=== PATIENT | female | born 1960 | race Caucasian/White ===

== ENCOUNTER 2024-04-29 04:01 | Inpatient (IN) | payer MEDICARE, OTHER ==
[~2024-04-29] VITALS: Ht 175.3 cm; Wt 35.4 kg
[2024-04-29] MEDS: FAMOTIDINE/PF INJ 20 MG/2 ML VIAL IV ONE (04:48)
[2024-04-29] MEDS: ONDANSETRON HCL/PF 4 MG/2 ML VIAL IVP ONE (04:48)
[2024-04-29] MEDS: IV NS 0.9% 1,000 ML BAG IV ONE (04:48)
[2024-04-29 05:24] LABS: CALCIUM, SERUM 10.1 mg/dL (8.5-10.1); CARBON DIOXIDE 32 mmol/L (21-32); CREATININE 3.8 mg/dL (0.6-1.3); GLUCOSE 165 mg/dL (74-106); SODIUM SERUM 126 mmol/L (136-145); UREA NITROGEN, BLOOD 76 mg/dL (7-18)
[2024-04-29 05:29] LABS: BASOPHILS # (AUTO) 0.1 K/uL (0.0-0.2); BASOPHILS % (AUTO) 0.3 % (0.0-2.0); HEMATOCRIT 43 % (33-45); HEMOGLOBIN 15.7 g/dL (11.5-14.8); LYMPHOCYTES # (AUTO) 0.3 K/uL (0.8-4.8); LYMPHOCYTES % (AUTO) 1.3 % (20.0-44.0); MEAN CORPUSCULAR HEMOGLOBIN 35 PG (26.0-33.0); MEAN CORPUSCULAR HGB CONC 37 g/dl (31.0-36.0); MEAN CORPUSCULAR VOLUME 96 fL (82-100); MONOCYTES # (AUTO) 1.4 K/uL (0.1-1.30); MONOCYTES % (AUTO) 5.7 % (2.0-12.0); NEUTROPHILS # (AUTO) 23.6 K/uL (1.8-8.9); NEUTROPHILS % (AUTO) 92.7 % (43.0-81.0); PLATELET COUNT (AUTO) 215 K/uL (150-450); RED BLOOD CELL COUNT(AUTO) 4.47 MIL/uL (4.0-5.2); RED CELL DISTRIBUTION WIDTH 12.1 % (11.5-15.0); WHITE BLOOD COUNT (AUTO) 25.4 K/uL (4.3-11.0)
[2024-04-29 05:30] LABS: ALANINE AMINOTRANSFERASE 17 U/L (12-78); ALKALINE PHOSPHATASE 74 U/L (46-116); ASPARTATE AMINOTRANSFERASE 21 U/L (15-37); BILIRUBIN,DIRECT 0.7 mg/dL (0.0-0.2); BILIRUBIN,TOTAL 1.8 mg/dL (0.2-1.0); LIPASE 27 U/L (16-77); TOTAL PROTEIN, SERUM 8.5 g/dL (6.4-8.2)
[2024-04-29 05:40] LABS: CHLORIDE 77 mmol/L (98-107)
[2024-04-29] MEDS ORDERED: METOCLOPRAMIDE HCL 10 MG/2 ML VIAL ONE (05:52)
[2024-04-29] MEDS ORDERED: LIDOCAINE VISCOUS 2% UD 15 ML UDC ONE (05:52)
[2024-04-29] MEDS: POTASSIUM CL. PREMIX PERIPHER. 50 ML IV SCH (06:00)
[2024-04-29] MEDS: diphenhydrAMINE HCL 50 MG/ML VIAL IV ONE (06:00)
[2024-04-29] MEDS ORDERED: Z GUARD REMEDY 4 OZ OINT TP PRN (06:30)
[2024-04-29] MEDS: METOCLOPRAMIDE HCL 10 MG/2 ML VIAL IV ONE (06:44)
[2024-04-29] MEDS: PIPERACILLIN /TAZOBACTAM 3.375 G in IV D5W 50 ML IV ONE (06:48)
[2024-04-29] MEDS ORDERED: POTASSIUM CL. PREMIX PERIPHER. 50 ML IV SCH (07:00)
[2024-04-29 07:03] LABS: INR 1.1 (0.91-1.10); PROTHROMBIN TIME 11.6 SECS (9.2-11.1)
[2024-04-29] MEDS ORDERED: POTASSIUM CL. PREMIX PERIPHER. 50 ML ONE (07:09)
[2024-04-29 08:00] VITALS: BP 127/74; TEMP 98.3; O2SAT 95
[2024-04-29 08:16] LABS: MAGNESIUM 2.2 mg/dL (1.8-2.4); PHOSPHORUS 7.3 mg/dL (2.5-4.9)
[2024-04-29 08:35] LABS: LACTIC ACID 4.5 mmol/L (0.4-2.0)
[2024-04-29] MEDS: PANTOPRAZOLE 40 MG VIAL IV SCH (09:00)
[2024-04-29] MEDS ORDERED: IV D5/0.45 NACL 1,000 ML IV ONE (09:00)
[2024-04-29] MEDS: IV NS 0.9% 1,000 ML IV ONE (10:58)
[2024-04-29] MEDS ORDERED: PIPERACILLIN /TAZOBACTAM 3.375 G in IV D5W 50 ML IV SCH (13:00)
[2024-04-29] MEDS: PIPERACILLIN /TAZOBACTAM 2.25 G in IV D5W 50 ML IV SCH (13:48)
[2024-04-29 14:41] LABS: CALCIUM, SERUM 8.7 mg/dL (8.5-10.1); POTASSIUM 3.1 mmol/L (3.5-5.1)
[2024-04-29 16:00] VITALS: BP 120/70; TEMP 98.2; O2SAT 94
[2024-04-29 16:20] LABS: ANISOCYTOSIS 1+; LYMPHOCYTES % (MANUAL) 2 % (16-48); MONOCYTES % (MANUAL) 4 % (0-11.0); NEUTROPHILS % (MANUAL) 94 (42-76); PLATELET ESTIMATE ADEQUATE
[2024-04-29 19:35] LABS: APPEARANCE,URINE SLIGHTLY CLOUDY (CLEAR); BILIRUBIN,URINE 1+ (NEGATIVE); BLOOD, URINE NEGATIVE Ery/uL (NEGATIVE); COLOR,URINE YELLOW (YELLOW); KETONES,URINE TRACE mg/dL (NEGATIVE); LEUKOCYTE ESTERASE ,URINE NEGATIVE (NEGATIVE); NITRITE, URINE NEGATIVE (NEGATIVE); PROTEIN,URINE TRACE mg/dl (NEGATIVE); UGLUCOSE NEGATIVE (NEGATIVE); UROBILINOGEN,URINE 0.2 EU/dL (0.2)
[2024-04-29 19:40] LABS: ADD URINE CULTURE NO; BACTERIA,URINE Rare /HPF (None Seen); RBC,URINE NONE SEEN /HPF (0-2); SQUAMOUS EPITHELIAL CELL,UR Rare /HPF (None Seen); URIC ACID CRYSTALS,URINE Many /HPF (None Seen); WBC,URINE NONE SEEN /HPF (0-3)
[2024-04-29 19:54] LABS: EOSINOPHIL,URINE None Seen
[2024-04-29 20:00] VITALS: BP 124/68; TEMP 98.2; O2SAT 97
[2024-04-29 20:09] LABS: CREATININE, URINE 83.6 MG/DL (30.0-125.0); URINE SODIUM, RANDOM < 5 mmol/l (40-220)
[2024-04-30] MEDS: IV NS 0.9% 1,000 ML BAG IV PRN (00:35)
[2024-04-30 04:00] VITALS: BP 125/59; TEMP 97.6; O2SAT 95
[2024-04-30 07:05] LABS: EOSINOPHILS % (AUTO) 0.1 % (0.0-6.0); HEMATOCRIT 35 % (33-45); HEMOGLOBIN 12.3 g/dL (11.5-14.8); LYMPHOCYTES # (AUTO) 0.4 K/uL (0.8-4.8); LYMPHOCYTES % (AUTO) 2.6 % (20.0-44.0); MEAN CORPUSCULAR HEMOGLOBIN 35 PG (26.0-33.0); MEAN CORPUSCULAR HGB CONC 36 g/dl (31.0-36.0); MEAN CORPUSCULAR VOLUME 98 fL (82-100); MONOCYTES # (AUTO) 0.7 K/uL (0.1-1.30); MONOCYTES % (AUTO) 4.5 % (2.0-12.0); NEUTROPHILS # (AUTO) 13.5 K/uL (1.8-8.9); NEUTROPHILS % (AUTO) 92.8 % (43.0-81.0); PLATELET COUNT (AUTO) 184 K/uL (150-450); RED BLOOD CELL COUNT(AUTO) 3.52 MIL/uL (4.0-5.2); WHITE BLOOD COUNT (AUTO) 14.6 K/uL (4.3-11.0)
[2024-04-30 07:11] LABS: ALBUMIN 2.7 g/dL (3.4-5.0); BILIRUBIN,DIRECT 0.5 mg/dL (0.0-0.2); CALCIUM, SERUM 8.5 mg/dL (8.5-10.1); MAGNESIUM 2.2 mg/dL (1.8-2.4); PHOSPHORUS 2.6 mg/dL (2.5-4.9); TOTAL PROTEIN, SERUM 6.4 g/dL (6.4-8.2)
[2024-04-30 07:19] LABS: THYROID STIMULATING HORMONE 0.58 uIU/mL (0.358-3.74)
[2024-04-30 07:46] LABS: POTASSIUM 2.3 mmol/L (3.5-5.1)
[2024-04-30 08:00] VITALS: BP 129/64; TEMP 97.7; O2SAT 95
[2024-04-30] MEDS: POTASSIUM CL. PREMIX PERIPHER. 50 ML IV SCH (10:16)
[2024-04-30 12:00] VITALS: BP 119/64; TEMP 99; O2SAT 96
[2024-04-30] MEDS: LORAZEPAM INJ 2 MG/ML VIAL IV PRN ×2 (12:06→19:46)
[2024-04-30 16:00] VITALS: BP 127/66; TEMP 97.7; O2SAT 95
[2024-04-30] MEDS ORDERED: DIATR MEGLU/DIATRIZOATE SODIUM 120 ML BOTTLE (GASTROGRAPHIN) ONE (16:44)
[2024-04-30] MEDS: ONDANSETRON HCL/PF 4 MG/2 ML VIAL IVP PRN (17:04)
[2024-04-30 20:00] VITALS: BP 139/70; TEMP 98.3; O2SAT 96
[2024-05-01] VITALS (16 sets, daily range): BP systolic 95–157; BP diastolic 63–89; TEMP 97.6–98.1; O2SAT 97–100
[2024-05-01 06:25] LABS: HEMATOCRIT 40 % (33-45); HEMOGLOBIN 13.8 g/dL (11.5-14.8); LYMPHOCYTES # (AUTO) 0.2 K/uL (0.8-4.8); LYMPHOCYTES % (AUTO) 1.1 % (20.0-44.0); MEAN CORPUSCULAR HEMOGLOBIN 34 PG (26.0-33.0); MEAN CORPUSCULAR HGB CONC 34 g/dl (31.0-36.0); MEAN CORPUSCULAR VOLUME 100 fL (82-100); MONOCYTES # (AUTO) 0.5 K/uL (0.1-1.30); MONOCYTES % (AUTO) 3.1 % (2.0-12.0); NEUTROPHILS # (AUTO) 16.5 K/uL (1.8-8.9); NEUTROPHILS % (AUTO) 95.8 % (43.0-81.0); PLATELET COUNT (AUTO) 237 K/uL (150-450); RED BLOOD CELL COUNT(AUTO) 4.02 MIL/uL (4.0-5.2); RED CELL DISTRIBUTION WIDTH 11.9 % (11.5-15.0); WHITE BLOOD COUNT (AUTO) 17.2 K/uL (4.3-11.0)
[2024-05-01 07:25] LABS: CALCIUM, SERUM 9.9 mg/dL (8.5-10.1); CREATININE 1.4 mg/dL (0.6-1.3); MAGNESIUM 2.5 mg/dL (1.8-2.4); PHOSPHORUS 1.4 mg/dL (2.5-4.9); POTASSIUM 2.9 mmol/L (3.5-5.1)
[2024-05-01 07:52] LABS: ALBUMIN 3.3 g/dL (3.4-5.0); BILIRUBIN,DIRECT 0.3 mg/dL (0.0-0.2); BILIRUBIN,TOTAL 0.8 mg/dL (0.2-1.0); TOTAL PROTEIN, SERUM 7.8 g/dL (6.4-8.2)
[2024-05-01] MEDS ORDERED: IV NS 0.9% 1,000 ML IV PRN (10:30)
[2024-05-01] MEDS: Potassium Chloride 20 MEQ in IV D5W 100 ML IV SCH (10:54)
[2024-05-01 11:10] LABS: PTH, INTACT 43 pg/mL (15-65)
[2024-05-01] MEDS ORDERED: ANESTHESIA TRAY IN PYXIS 1 EA TRAY MC ONE (13:02)
[2024-05-01] MEDS ORDERED: BUPIVACAINE 0.5 % PF 150 MG/30 ML VIAL ONE (13:02)
[2024-05-01] MEDS ORDERED: LIDOCAINE 1%-EPI 1:100,000 20 ML VIAL ONE (13:02)
[2024-05-01] MEDS ORDERED: FENTANYL PF 250MCG/5ML AMPUL ONE (15:06)
[2024-05-01] MEDS ORDERED: ROCURONIUM BROMIDE 50 MG/5 ML ONE (15:06)
[2024-05-01] MEDS ORDERED: ALBUMIN 5% 250 ML IV ONE (16:29)
[2024-05-01] MEDS: POTASSIUM PHOSPHATE MM 7.5 MMOL in IV NS 0.9% 100 ML IV SCH (17:00)
[2024-05-01] MEDS ORDERED: FENTANYL PF 100MCG/2ML AMPUL ONE (17:05)
[2024-05-01] MEDS ORDERED: METRONIDAZOLE 500MG/ NS 100ML 100 ML IV ONE (17:07)
[2024-05-01] MEDS ORDERED: EPINEPHRINE (1:10,000) SYRINGE 1 MG/10 ML DISP.SYRIN ONE (17:19)
[2024-05-01] MEDS: IV D5/0.45 NACL 1,000 ML IV PRN (18:41)
[2024-05-01] MEDS: HYDROMORPHONE 1 MG/1 ML DISP.SYRIN IV PRN (19:52)
[2024-05-01 20:14] LABS: POTASSIUM 2.6 mmol/L (3.5-5.1)
[2024-05-01 21:55] LABS: ABG BASE EXCESS -8.7 mmol/L (-2.0-3.0); ABG OXYGEN SATURATION 99.2 % (94.0-98.0); ABG PCO2 23.1 mmHg (32.0-45.0); ABG PH 7.394 (7.350-7.450); ABG PO2 246.3 mmHg (83.0-108.0); ABG TOTAL HEMOGLOBIN 15.6 G/dL (12.0-16.0); COHb 0.3 % (0.5-1.5); MetHb 0.6 % (0.0-1.5); O2Hb 98.3 % (94.0-97.0); PEEP,BG 5 cm H2O; SITE, ABG RIGHT BRACHIAL
[2024-05-01] MEDS ORDERED: POTASSIUM CL. PREMIX PERIPHER. 50 ML IV SCH (22:00)
[2024-05-01] MEDS: PROPOFOL 100 ML IV PRN (22:19)
[2024-05-01] MEDS: SODIUM BICARBONATE SYR 50 MEQ/50 ML DISP.SYRIN IV ONE (22:38)
[2024-05-01 22:52] LABS: ABG BASE EXCESS -12.7 mmol/L (-2.0-3.0); ABG OXYGEN SATURATION 98.9 % (94.0-98.0); ABG PCO2 22.7 mmHg (32.0-45.0); ABG PH 7.309 (7.350-7.450); ABG TOTAL HEMOGLOBIN 16.1 G/dL (12.0-16.0); COHb 0.3 % (0.5-1.5); MetHb 0.4 % (0.0-1.5); O2Hb 98.2 % (94.0-97.0); PEEP,BG 5 cm H2O; SITE, ABG ALINE
[2024-05-02] VITALS (99 sets, daily range): BP systolic 75–140; BP diastolic 33–93; TEMP 97.7–98; O2SAT 96–100
[2024-05-02] MEDS: PHENYLEPHRINE 50 MG in IV NS 0.9% 245 ML IV PRN (01:25)
[2024-05-02] MEDS: PHENYLEPHRINE 10 MG/ML VIAL ONE (01:33)
[2024-05-02 04:10] LABS: BASOPHILS % (AUTO) 0.1 % (0.0-2.0); EOSINOPHILS % (AUTO) 0.1 % (0.0-6.0); HEMATOCRIT 39 % (33-45); HEMOGLOBIN 13.5 g/dL (11.5-14.8); LYMPHOCYTES # (AUTO) 0.2 K/uL (0.8-4.8); LYMPHOCYTES % (AUTO) 1.3 % (20.0-44.0); MEAN CORPUSCULAR HEMOGLOBIN 35 PG (26.0-33.0); MEAN CORPUSCULAR HGB CONC 35 g/dl (31.0-36.0); MEAN CORPUSCULAR VOLUME 102 fL (82-100); MONOCYTES # (AUTO) 0.9 K/uL (0.1-1.30); MONOCYTES % (AUTO) 5.1 % (2.0-12.0); NEUTROPHILS # (AUTO) 15.8 K/uL (1.8-8.9); NEUTROPHILS % (AUTO) 93.4 % (43.0-81.0); PLATELET COUNT (AUTO) 258 K/uL (150-450); RED BLOOD CELL COUNT(AUTO) 3.82 MIL/uL (4.0-5.2); RED CELL DISTRIBUTION WIDTH 12.4 % (11.5-15.0)
[2024-05-02 04:54] LABS: ALBUMIN 2.1 g/dL (3.4-5.0); BILIRUBIN,DIRECT 0.1 mg/dL (0.0-0.2); BILIRUBIN,TOTAL 0.9 mg/dL (0.2-1.0); CALCIUM, SERUM 7.3 mg/dL (8.5-10.1); CREATININE 1.8 mg/dL (0.6-1.3); POTASSIUM 3.6 mmol/L (3.5-5.1); TOTAL PROTEIN, SERUM 5.2 g/dL (6.4-8.2)
[2024-05-02] MEDS: IV D5W 1,000 ML IV ONE (10:06)
[2024-05-03] VITALS (52 sets, daily range): BP systolic 107–151; BP diastolic 51–95; TEMP 98–99.2; O2SAT 98–100
[2024-05-03 05:30] LABS: BASOPHILS % (AUTO) 0.1 % (0.0-2.0); EOSINOPHILS % (AUTO) 0.1 % (0.0-6.0); HEMATOCRIT 29 % (33-45); HEMOGLOBIN 10.4 g/dL (11.5-14.8); LYMPHOCYTES % (AUTO) 5.2 % (20.0-44.0); MEAN CORPUSCULAR HEMOGLOBIN 36 PG (26.0-33.0); MEAN CORPUSCULAR HGB CONC 36 g/dl (31.0-36.0); MEAN CORPUSCULAR VOLUME 100 fL (82-100); MONOCYTES # (AUTO) 1.2 K/uL (0.1-1.30); MONOCYTES % (AUTO) 6.4 % (2.0-12.0); NEUTROPHILS # (AUTO) 16.7 K/uL (1.8-8.9); NEUTROPHILS % (AUTO) 88.2 % (43.0-81.0); PLATELET COUNT (AUTO) 162 K/uL (150-450); RED BLOOD CELL COUNT(AUTO) 2.92 MIL/uL (4.0-5.2); RED CELL DISTRIBUTION WIDTH 12.3 % (11.5-15.0); WHITE BLOOD COUNT (AUTO) 18.9 K/uL (4.3-11.0)
[2024-05-03 05:47] LABS: ALBUMIN 1.7 g/dL (3.4-5.0); BILIRUBIN,DIRECT 0.2 mg/dL (0.0-0.2); BILIRUBIN,TOTAL 0.4 mg/dL (0.2-1.0); CALCIUM, SERUM 7.2 mg/dL (8.5-10.1); CREATININE 1.6 mg/dL (0.6-1.3); MAGNESIUM 1.4 mg/dL (1.8-2.4); PHOSPHORUS 1.4 mg/dL (2.5-4.9); TOTAL PROTEIN, SERUM 4.7 g/dL (6.4-8.2)
[2024-05-03 05:50] LABS: POTASSIUM 2.4 mmol/L (3.5-5.1)
[2024-05-03] MEDS: POTASSIUM CL. PREMIX PERIPHER. 50 ML IV SCH (06:32)
[2024-05-03] MEDS ORDERED: POTASSIUM CL. PREMIX PERIPHER. 50 ML IV SCH (09:30)
[2024-05-03] MEDS ORDERED: Magnesium 1 GM/2 ML VIAL IV ONE (10:00)
[2024-05-03] MEDS: MEROPENEM 500 MG in IV NS 0.9% 50 ML IV SCH (10:27)
[2024-05-03] MEDS: POTASSIUM PHOSPHATE MM 7.5 MMOL in IV NS 0.9% 100 ML IV SCH ×2 (10:27→19:30)
[2024-05-03] MEDS: VANCOMYCIN 750 MG in IV D5W 250 ML IV ONE (11:24)
[2024-05-03] MEDS: Magnesium 1GM/D5W 100ML PREMIX PIGGYBACK IV SCH (12:26)
[2024-05-03] MEDS ORDERED: MEROPENEM 1 G in IV NS 0.9% 100 ML IV SCH (13:00)
[2024-05-03 15:27] LABS: ABG BASE EXCESS -4.4 mmol/L (-2.0-3.0); ABG OXYGEN SATURATION 98.1 % (94.0-98.0); ABG PCO2 24.5 mmHg (32.0-45.0); ABG PH 7.479 (7.350-7.450); ABG PO2 119.9 mmHg (83.0-108.0); ABG TOTAL HEMOGLOBIN 10.9 G/dL (12.0-16.0); COHb 0.2 % (0.5-1.5); MetHb 0.1 % (0.0-1.5); O2Hb 97.8 % (94.0-97.0); SITE, ABG RIGHT BRACHIAL
[2024-05-03 17:52] LABS: CALCIUM, SERUM 7.2 mg/dL (8.5-10.1); CREATININE 1.1 mg/dL (0.6-1.3); MAGNESIUM 2.1 mg/dL (1.8-2.4); PHOSPHORUS 1.8 mg/dL (2.5-4.9); POTASSIUM 3.3 mmol/L (3.5-5.1)
[2024-05-04] VITALS (26 sets, daily range): BP systolic 129–157; BP diastolic 65–87; TEMP 96.5–98.4; O2SAT 99–100
[2024-05-04 05:29] LABS: EOSINOPHILS % (AUTO) 0.2 % (0.0-6.0); HEMATOCRIT 28 % (33-45); HEMOGLOBIN 10.1 g/dL (11.5-14.8); LYMPHOCYTES # (AUTO) 0.8 K/uL (0.8-4.8); LYMPHOCYTES % (AUTO) 4.9 % (20.0-44.0); MEAN CORPUSCULAR HEMOGLOBIN 36 PG (26.0-33.0); MEAN CORPUSCULAR HGB CONC 36 g/dl (31.0-36.0); MEAN CORPUSCULAR VOLUME 99 fL (82-100); MONOCYTES # (AUTO) 0.9 K/uL (0.1-1.30); MONOCYTES % (AUTO) 5.6 % (2.0-12.0); NEUTROPHILS # (AUTO) 15.2 K/uL (1.8-8.9); NEUTROPHILS % (AUTO) 89.3 % (43.0-81.0); PLATELET COUNT (AUTO) 156 K/uL (150-450); RED BLOOD CELL COUNT(AUTO) 2.85 MIL/uL (4.0-5.2); RED CELL DISTRIBUTION WIDTH 12.3 % (11.5-15.0)
[2024-05-04 05:42] LABS: CALCIUM, SERUM 7.3 mg/dL (8.5-10.1); MAGNESIUM 1.6 mg/dL (1.8-2.4); PHOSPHORUS 3.3 mg/dL (2.5-4.9)
[2024-05-04 05:45] LABS: POTASSIUM 2.8 mmol/L (3.5-5.1)
[2024-05-04 07:46] LABS: BILIRUBIN,DIRECT 0.2 mg/dL (0.0-0.2); BILIRUBIN,TOTAL 0.5 mg/dL (0.2-1.0)
[2024-05-04 07:47] LABS: ALBUMIN 1.8 g/dL (3.4-5.0)
[2024-05-04] MEDS: POTASSIUM CL. PREMIX PERIPHER. 50 ML IV SCH (09:15)
[2024-05-04] MEDS: Magnesium 1GM/D5W 100ML PREMIX 100 ML IV SCH (09:15)
[2024-05-04] MEDS ORDERED: VANCOMYCIN 500 MG in IV D5W 100 ML IV SCH (11:00)
[2024-05-04] MEDS: VANCOMYCIN 500 MG in IV D5W 100ml IV SCH (11:17)
[2024-05-04 13:31] LABS: CREATININE 0.9 mg/dL (0.6-1.3); POTASSIUM 2.8 mmol/L (3.5-5.1)
[2024-05-04 14:07] LABS: *SPE ALBUMIN 2.8 g/dL (2.9-4.4); *SPE ALPHA-1-GLOBULIN 0.5 g/dL (0.0-0.4); *SPE ALPHA-2-GLOBULIN 0.8 g/dL (0.4-1.0); *SPE BETA GLOBULIN 0.7 g/dL (0.7-1.3); *SPE GLOBULIN, TOTAL 2.8 g/dL (2.2-3.9); *SPE M-SPIKE Not Observed g/dL (Not Observed); *SPE PROTEIN TOTAL 5.6 g/dL (6.0-8.5); *SPEGAMMA GLOBULIN 0.8 g/dL (0.4-1.8)
[2024-05-04 14:19] LABS: CALCIUM, SERUM 7.2 mg/dL (8.5-10.1)
[2024-05-05] VITALS: BP 140/66; TEMP 98.2; O2SAT 100
[2024-05-05 04:00] VITALS: BP 142/73; TEMP 98.1; O2SAT 98
[2024-05-05 08:00] VITALS: BP 142/74; TEMP 98; O2SAT 99
[2024-05-05 09:09] LABS: ALBUMIN 1.8 g/dL (3.4-5.0); BILIRUBIN,DIRECT 0.2 mg/dL (0.0-0.2); BILIRUBIN,TOTAL 0.7 mg/dL (0.2-1.0)
[2024-05-05 12:00] VITALS: BP 145/78; TEMP 98.2; O2SAT 100
[2024-05-05 16:00] VITALS: BP 137/83; TEMP 97.9; O2SAT 99
[2024-05-05 20:00] VITALS: BP 147/77; TEMP 98.4; O2SAT 99
[2024-05-06] VITALS: BP 137/88; TEMP 98.1; O2SAT 99
[2024-05-06 04:00] VITALS: BP 133/75; TEMP 98.5; O2SAT 99
[2024-05-06 07:33] LABS: BASOPHILS % (AUTO) 0.1 % (0.0-2.0); EOSINOPHILS # (AUTO) 0.1 K/uL (0.0-0.7); EOSINOPHILS % (AUTO) 0.8 % (0.0-6.0); HEMATOCRIT 30 % (33-45); HEMOGLOBIN 10.8 g/dL (11.5-14.8); LYMPHOCYTES # (AUTO) 0.7 K/uL (0.8-4.8); LYMPHOCYTES % (AUTO) 6.1 % (20.0-44.0); MEAN CORPUSCULAR HEMOGLOBIN 34 PG (26.0-33.0); MEAN CORPUSCULAR HGB CONC 36 g/dl (31.0-36.0); MEAN CORPUSCULAR VOLUME 97 fL (82-100); MONOCYTES # (AUTO) 1.2 K/uL (0.1-1.30); MONOCYTES % (AUTO) 10.2 % (2.0-12.0); NEUTROPHILS # (AUTO) 9.6 K/uL (1.8-8.9); NEUTROPHILS % (AUTO) 82.8 % (43.0-81.0); PLATELET COUNT (AUTO) 190 K/uL (150-450); RED BLOOD CELL COUNT(AUTO) 3.14 MIL/uL (4.0-5.2); RED CELL DISTRIBUTION WIDTH 12.1 % (11.5-15.0); WHITE BLOOD COUNT (AUTO) 11.6 K/uL (4.3-11.0)
[2024-05-06 08:00] VITALS: BP 138/79; TEMP 97.4; O2SAT 99
[2024-05-06 08:06] LABS: CALCIUM, SERUM 6.9 mg/dL (8.5-10.1); CREATININE 0.6 mg/dL (0.6-1.3)
[2024-05-06 08:07] LABS: ALBUMIN 1.8 g/dL (3.4-5.0); BILIRUBIN,DIRECT 0.4 mg/dL (0.0-0.2); PHOSPHORUS 2.2 mg/dL (2.5-4.9); TOTAL PROTEIN, SERUM 4.9 g/dL (6.4-8.2)
[2024-05-06 08:50] LABS: POTASSIUM 1.9 mmol/L (3.5-5.1)
[2024-05-06] MEDS: Magnesium 1GM/D5W 100ML PREMIX PIGGYBACK IV SCH (10:41)
[2024-05-06] MEDS: POTASSIUM CHLORIDE 10 MEQ/50 ML PREMIXED IVPB FOR PERIPHERAL LINE IV SCH (10:42)
[2024-05-06 12:00] VITALS: BP 129/74; TEMP 98.2; O2SAT 99
[2024-05-06 16:00] VITALS: BP 134/69; TEMP 98.1; O2SAT 99
[2024-05-06] MEDS: Sodium Phosphate 15 MMOL in IV NS 0.9% 245 ML IV SCH (16:34)
[2024-05-06 16:42] LABS: CALCIUM, SERUM 7.3 mg/dL (8.5-10.1); CREATININE 0.7 mg/dL (0.6-1.3)
[2024-05-06 16:47] LABS: POTASSIUM 2.3 mmol/L (3.5-5.1)
[2024-05-06 18:07] LABS: THYROID STIMULATING HORMONE 3.57 uIU/mL (0.358-3.74)
[2024-05-06 20:00] VITALS: BP 135/63; TEMP 98.1; O2SAT 99
[2024-05-06] MEDS: POTASSIUM CL. PREMIX PERIPHER. 50 ML IV SCH (20:57)
[2024-05-06] MEDS: MEROPENEM 1 G in IV NS 0.9% 100 ML IV SCH (22:56)
[2024-05-07] VITALS: BP 130/74; TEMP 98.5; O2SAT 100
[2024-05-07 04:00] VITALS: BP 132/65; TEMP 98.3; O2SAT 100
[2024-05-07 07:25] LABS: EOSINOPHILS # (AUTO) 0.1 K/uL (0.0-0.7); EOSINOPHILS % (AUTO) 0.6 % (0.0-6.0); HEMATOCRIT 30 % (33-45); HEMOGLOBIN 10.5 g/dL (11.5-14.8); LYMPHOCYTES # (AUTO) 0.9 K/uL (0.8-4.8); LYMPHOCYTES % (AUTO) 7.3 % (20.0-44.0); MEAN CORPUSCULAR HEMOGLOBIN 35 PG (26.0-33.0); MEAN CORPUSCULAR HGB CONC 36 g/dl (31.0-36.0); MEAN CORPUSCULAR VOLUME 99 fL (82-100); MONOCYTES # (AUTO) 1.1 K/uL (0.1-1.30); MONOCYTES % (AUTO) 9.4 % (2.0-12.0); NEUTROPHILS % (AUTO) 82.7 % (43.0-81.0); PLATELET COUNT (AUTO) 203 K/uL (150-450); RED CELL DISTRIBUTION WIDTH 12.1 % (11.5-15.0); WHITE BLOOD COUNT (AUTO) 12.1 K/uL (4.3-11.0)
[2024-05-07 08:00] VITALS: BP 137/75; TEMP 98.2; O2SAT 99
[2024-05-07 08:10] LABS: ALBUMIN 1.8 g/dL (3.4-5.0); BILIRUBIN,DIRECT 0.2 mg/dL (0.0-0.2); BILIRUBIN,TOTAL 0.7 mg/dL (0.2-1.0); CALCIUM, SERUM 7.4 mg/dL (8.5-10.1); CREATININE 0.6 mg/dL (0.6-1.3); MAGNESIUM 1.6 mg/dL (1.8-2.4); PHOSPHORUS 2.4 mg/dL (2.5-4.9)
[2024-05-07] MEDS: Potassium Chloride 20 MEQ in IV D5/0.45 NACL 1,000 ML IV SCH (08:18)
[2024-05-07 08:44] LABS: POTASSIUM 2.4 mmol/L (3.5-5.1)
[2024-05-07] MEDS: Magnesium 1GM/D5W 100ML PREMIX 100 ML IV SCH (09:59)
[2024-05-07] MEDS: POTASSIUM CL. PREMIX PERIPHER. 50 ML IV SCH (10:33)
[2024-05-07] MEDS ORDERED: ACIDOPHILUS/BULGARICUS 1 EACH GRAN.PACK PO SCH (11:00)
[2024-05-07] MEDS: ACIDOPHILUS/BULGARICUS 1 EACH TAB.CHEW PO SCH (13:29)
[2024-05-07 13:35] LABS: CALCIUM, SERUM 7.8 mg/dL (8.5-10.1); CREATININE 0.8 mg/dL (0.6-1.3)
[2024-05-07 13:44] LABS: POTASSIUM 2.5 mmol/L (3.5-5.1)
[2024-05-07 16:00] VITALS: BP 129/63; TEMP 97.9; O2SAT 99
[2024-05-07 16:44] LABS: CALCIUM, SERUM 7.4 mg/dL (8.5-10.1); CREATININE 0.8 mg/dL (0.6-1.3); POTASSIUM 3.3 mmol/L (3.5-5.1)
[2024-05-07] MEDS: K PHOS NEUTRAL 250 MG TABLET PO ONE (16:45)
[2024-05-07 20:00] VITALS: BP 149/73; TEMP 97.7; O2SAT 100
[2024-05-08] VITALS: BP 149/73; TEMP 97.7; O2SAT 100
[2024-05-08 04:00] VITALS: BP 125/56; TEMP 97.5; O2SAT 100
[2024-05-08 06:25] LABS: BASOPHILS % (AUTO) 0.1 % (0.0-2.0); EOSINOPHILS # (AUTO) 0.1 K/uL (0.0-0.7); EOSINOPHILS % (AUTO) 0.7 % (0.0-6.0); HEMATOCRIT 28 % (33-45); HEMOGLOBIN 9.9 g/dL (11.5-14.8); LYMPHOCYTES # (AUTO) 0.7 K/uL (0.8-4.8); LYMPHOCYTES % (AUTO) 6.1 % (20.0-44.0); MEAN CORPUSCULAR HEMOGLOBIN 34 PG (26.0-33.0); MEAN CORPUSCULAR HGB CONC 35 g/dl (31.0-36.0); MEAN CORPUSCULAR VOLUME 97 fL (82-100); MONOCYTES % (AUTO) 8.1 % (2.0-12.0); NEUTROPHILS # (AUTO) 10.4 K/uL (1.8-8.9); PLATELET COUNT (AUTO) 224 K/uL (150-450); RED BLOOD CELL COUNT(AUTO) 2.89 MIL/uL (4.0-5.2); RED CELL DISTRIBUTION WIDTH 12.1 % (11.5-15.0); WHITE BLOOD COUNT (AUTO) 12.2 K/uL (4.3-11.0)
[2024-05-08 08:00] VITALS: BP 125/54; TEMP 98.3; O2SAT 100
[2024-05-08 08:11] LABS: ALBUMIN 1.8 g/dL (3.4-5.0); BILIRUBIN,DIRECT 0.2 mg/dL (0.0-0.2); BILIRUBIN,TOTAL 0.6 mg/dL (0.2-1.0); CALCIUM, SERUM 7.7 mg/dL (8.5-10.1); CREATININE 0.7 mg/dL (0.6-1.3); MAGNESIUM 1.6 mg/dL (1.8-2.4); TOTAL PROTEIN, SERUM 4.7 g/dL (6.4-8.2)
[2024-05-08 10:00] VITALS: BP 128/68; TEMP 98.5; O2SAT 97
[2024-05-08] MEDS: Magnesium 1GM/D5W 100ML PREMIX 100 ML IV SCH (10:11)
[2024-05-08] MEDS: POTASSIUM CHLORIDE 20 MEQ TAB.PRT.SR PO ONE ×2 (10:17→13:32)
[2024-05-08 16:00] VITALS: BP 137/69; TEMP 98.5; O2SAT 100
[2024-05-08] MEDS: TRIAMCINOLONE ACETONIDE 0.1% CR 15 GM TUBE TP SCH (16:09)
[2024-05-08] MEDS: K PHOS NEUTRAL 250 MG TABLET PO ONE (16:09)
[2024-05-08 16:30] LABS: CALCIUM, SERUM 7.7 mg/dL (8.5-10.1); CREATININE 0.7 mg/dL (0.6-1.3); POTASSIUM 3.5 mmol/L (3.5-5.1)
[2024-05-08 21:55] VITALS: BP 127/62; TEMP 97.9; O2SAT 97
[2024-05-09 01:18] LABS: POTASSIUM RNDM,URINE 37 mmol/L (25-125)
[2024-05-09 04:59] VITALS: BP 140/75; TEMP 98.4
[2024-05-09 08:00] VITALS: BP 147/81; TEMP 97.7; O2SAT 97
[2024-05-09 08:10] LABS: CREATININE 0.8 mg/dL (0.6-1.3); POTASSIUM 3.3 mmol/L (3.5-5.1)
[2024-05-09 08:19] LABS: BILIRUBIN,DIRECT 0.2 mg/dL (0.0-0.2); BILIRUBIN,TOTAL 0.7 mg/dL (0.2-1.0); TOTAL PROTEIN, SERUM 5.2 g/dL (6.4-8.2)
[2024-05-09] MEDS ORDERED: PANT40TA49 PO (08:59)
[2024-05-09] MEDS ORDERED: IBUP-1953 PO (08:59)
[2024-05-09] MEDS ORDERED: AMOX-430 PO (08:59)
[2024-05-09] MEDS: PANTOPRAZOLE 40 MG TABLET.DR PO SCH (09:46)
[2024-05-09] MEDS: POTASSIUM CHLORIDE 20 MEQ TAB.PRT.SR PO ONE (09:57)
[2024-05-09 22:29] LABS: POTASSIUM U,24HR CALC 33 mmol/24H (25-125); TOTAL VOLUME 24HRS,URINE 900 mL
== END 2024-05-09 13:18 | disposition home health service (06) | DRG 853 ==
LOC: ER 04:03 → MEDSG1 06:00 → TELE1 04-30 11:48 → MEDSG1 05-01 09:47 → ICU 05-01 17:42 → TELE1 05-04 14:18 → MEDSG1 05-07 10:42
PROVIDERS: ADMIT Internal Medicine; ATTEND Nurse Practitioner Acute Care
PROC: 0DB80ZZ Excision of Small Intestine, Open Approach (ICD-10-PCS; principal; 2024-05-01)
PROC: 0BH18EZ Insertion of Endotracheal Airway into Trachea, Via Natural or Artificial Opening Endoscopic (ICD-10-PCS; 2024-05-01)
PROC: 5A1945Z Respiratory Ventilation, 24-96 Consecutive Hours (ICD-10-PCS; 2024-05-01)
PROC: 05H933Z Insertion of Infusion Device into Right Brachial Vein, Percutaneous Approach (ICD-10-PCS; 2024-05-01)
DX: A41.9 Sepsis, unspecified organism (principal); E43 Unspecified severe protein-calorie malnutrition; J96.01 Acute respiratory failure with hypoxia; N17.0 Acute kidney failure with tubular necrosis; K55.029 Acute infarction of small intestine, extent unspecified; R65.21 Severe sepsis with septic shock; E87.1 Hypo-osmolality and hyponatremia; K56.609 Unspecified intestinal obstruction, unspecified as to partial versus complete obstruction; E87.20 Acidosis, unspecified; E87.0 Hyperosmolality and hypernatremia; R65.20 Severe sepsis without septic shock; D75.1 Secondary polycythemia; Z53.31 Laparoscopic surgical procedure converted to open procedure; N18.9 Chronic kidney disease, unspecified; M89.8X9 Other specified disorders of bone, unspecified site; F17.200 Nicotine dependence, unspecified, uncomplicated; E88.09 Other disorders of plasma-protein metabolism, not elsewhere classified; Z90.710 Acquired absence of both cervix and uterus; Z88.5 Allergy status to narcotic agent; L29.9 Pruritus, unspecified; R21 Rash and other nonspecific skin eruption; E83.42 Hypomagnesemia; E83.39 Other disorders of phosphorus metabolism; E83.41 Hypermagnesemia; E86.9 Volume depletion, unspecified; D64.9 Anemia, unspecified; E87.6 Hypokalemia; N73.6 Female pelvic peritoneal adhesions (postinfective); E80.6 Other disorders of bilirubin metabolism
CPT/HCPCS: 31720; 36415; 36600; 71045-TC; 74018; 74250-TC; 76770-TC; 80048-TC; 80053-TC; 80076-TC; 80202-TC; 81001; 82550-TC; 82570-TC; 82803-TC; 83605-TC; 83690-TC; 83735-TC; 83970; 84100-TC; 84132-TC; 84133-TC; 84155; 84165; 84300-TC; 84439-TC; 84443-TC; 84478-TC; 84484-TC; 85025-TC; 85730-TC; 86850-TC; 87081-TC; 87086-TC; 88307-TC; 94002; 94002-TC; 94003-TC; 94762-TC; 94799-TC; 97110-TC; 97112-TC; 97116-TC; 97530-TC; 99082-TC; A4223; A6403; A9563; G0378; J0171; J0461; J0690; J1171; J2060; J2185; J2405; J2470; J2543; J2704; J2765; J3010; J3370; J3371; J3475; J3480; J3490; J7030; J7040; J7050; J7060; J7070; P9045; Q9963